=== PATIENT | male | born 2000 | race Caucasian/White ===

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

== ENCOUNTER 2022-10-16 07:37 | Emergency (ER) | payer OTHER, MEDICAID ==
[2022-10-16] MEDS ORDERED: OXCARBAZEPINE150 M1 PO (08:58)
[2022-10-16] MEDS ORDERED: GUANFACINE HCL1 M1 PO (08:59)
[2022-10-16] MEDS ORDERED: DESVENLAFAXINE50 M3 PO (08:59)
[2022-10-16] MEDS ORDERED: TOPIRAMATE25 MG PO (09:01)
[2022-10-16] MEDS ORDERED: CYCLOBENZAPRINE10 M1 PO (09:23)
[2022-10-16 10:20] VITALS: BP 128/73
== END 2022-10-16 10:23 | disposition home or self-care (01) ==
LOC: ED 07:37
DX: S09.90XA Unspecified injury of head, initial encounter (principal); S01.112A Laceration without foreign body of left eyelid and periocular area, initial encounter; M25.522 Pain in left elbow; Z28.310 Unvaccinated for COVID-19; V89.2XXA Person injured in unspecified motor-vehicle accident, traffic, initial encounter; Y92.410 Unspecified street and highway as the place of occurrence of the external cause

== ENCOUNTER 2022-10-25 19:14 | Emergency (ER) | payer OTHER, MEDICAID ==
[~2022-10-25] VITALS: Ht 185.4 cm; Wt 102.3 kg
[~2022-10-25 19:14] MED LIST: CYCLOBENZAPRINE10 M1 PO; DESVENLAFAXINE50 M3 PO; GUANFACINE HCL1 M1 PO; OXCARBAZEPINE150 M1 PO; TOPIRAMATE25 MG PO
[2022-10-25] MEDS ORDERED: CYCLOBENZAPRINE10 M1 PO (20:15)
[2022-10-25 20:40] VITALS: BP 139/96
== END 2022-10-25 20:41 | disposition home or self-care (01) ==
LOC: ED 19:14
DX: S20.319A Abrasion of unspecified front wall of thorax, initial encounter (principal); S40.212A Abrasion of left shoulder, initial encounter; S40.211A Abrasion of right shoulder, initial encounter; F17.200 Nicotine dependence, unspecified, uncomplicated; Z28.310 Unvaccinated for COVID-19; V48.5XXA Car driver injured in noncollision transport accident in traffic accident, initial encounter; Y92.410 Unspecified street and highway as the place of occurrence of the external cause
CPT/HCPCS: J1885

== ENCOUNTER 2023-11-12 02:47 | Emergency (ER) | payer SELFPAY ==
[~2023-11-12 02:47] MED LIST changes: +AMOXICILLIN 50500 MG PO
[2023-11-12] MEDS ORDERED: Ketorolac 30 MG/ML VIAL IM ONE (03:00)
[2023-11-12] MEDS ORDERED: Amoxicillin 250 MG CAP PO ONE (03:00)
[2023-11-12] MEDS ORDERED: AMOXICILLIN 50500 MG PO (03:04)
[2023-11-12 03:11] VITALS: BP 151/90
== END 2023-11-12 03:10 | disposition home or self-care (01) ==
LOC: ED 02:47
DX: S02.5XXA Fracture of tooth (traumatic), initial encounter for closed fracture (principal); K02.9 Dental caries, unspecified; X58.XXXA Exposure to other specified factors, initial encounter
CPT/HCPCS: J1885

== ENCOUNTER 2023-12-23 17:34 | Emergency (ER) | payer BC | END 2023-12-23 18:58 | disposition home or self-care (01) | LOC: ED 17:34 | DX: K05.10 Chronic gingivitis, plaque induced (principal) ==

== ENCOUNTER 2024-08-25 15:34 | Emergency (ER) | payer BC ==
[~2024-08-25] VITALS: Ht 188 cm; Wt 102.3 kg
[2024-08-25] MEDS ORDERED: Albuterol 0.083% Nebule (2.5 MG/3 ML) IH ONE (15:45)
[2024-08-25] MEDS ORDERED: RT ALBUTEROL CC18 GM IH (15:54)
[2024-08-25 16:30] VITALS: BP 151/77
== END 2024-08-25 16:30 | disposition home or self-care (01) ==
LOC: ED 15:34
DX: J45.909 Unspecified asthma, uncomplicated (principal)